=== PATIENT | male | born 1975 | race Two or more races ===

== ENCOUNTER → 2016-10-11 | Outpatient (CLI) | payer BC ==
[2014-04-06 08:30] VITALS: BP 112/76
[~2016-10-11] MED LIST: OMEP2.5S PO; PROP1VIA IV
[2016-10-11 08:36] LABS: ALBUMIN 3.8 g/dL (3.4-5.0); CALCIUM 8.6 mg/dL (8.5-10.1); CREATININE 0.8 mg/dL (0.7-1.3); POTASSIUM 3.6 mmol/L (3.5-5.1); TOTAL BILIRUBIN 0.7 mg/dL (0.2-1.0); TOTAL PROTEIN 7.7 g/dL (6.4-8.2)
[2016-10-11 08:37] LABS: GFR 106.5
== END | disposition home or self-care (01) ==
LOC: LAB 07:51
PROVIDERS: ATTEND Nurse Practitioner
DX: E78.1 Pure hyperglyceridemia (principal)
CPT/HCPCS: 36415; 80053; 80061

== ENCOUNTER → 2019-10-24 | Outpatient (CLI) | payer BC ==
[2014-04-06 08:30] VITALS: BP 112/76
[~2019-10-24] MED LIST changes: -OMEP2.5S PO; +OMEP2.5S2 PO
[2019-10-24 08:32] LABS: ALBUMIN 3.9 g/dL (3.4-5.0); CALCIUM 8.7 mg/dL (8.5-10.1); GFR 81.2; POTASSIUM 3.7 mmol/L (3.5-5.1); TOTAL BILIRUBIN 0.8 mg/dL (0.2-1.0); TOTAL PROTEIN 7.7 g/dL (6.4-8.2)
== END | disposition home or self-care (01) ==
LOC: LAB 07:41
PROVIDERS: ATTEND Internal Medicine Cardiovascular Disease
DX: E78.2 Mixed hyperlipidemia (principal)
CPT/HCPCS: 36415; 80053; 80061

== ENCOUNTER → 2021-01-19 | Outpatient (CLI) | payer BC ==
[2014-04-06 08:30] VITALS: BP 112/76
--- NOTE | 2021-01-19 09:26 | RAD ---
EXAM: Abdomen sonogram. HISTORY: Pain. TECHNIQUE: Sonographic imaging of the abdomen was performed. COMPARISON: None. FINDINGS: The liver is upper normal in size. There is hepatic steatosis. No focal hepatic lesion is s een. There is focal fatty sparing along the portal triad. The gallbladder is unremarkable. The common bile duct is normal in caliber. The spleen is enlarged, measuring 14.5 cm. The pancreas, aorta and i nferior vena cava are partially obscured due to bowel gas. The kidneys are unremarkable. IMPRESSION: 1. Hepatic steatosis and upper normal liver size. 2. Splenomegaly. 3. No acute sonographic finding. Electronically signed by: Iesha Bearden MD (01/19/2021 9:23 AM) [id number]
== END ==
LOC: US 08:34
PROVIDERS: ATTEND Physician Assistant
DX: K76.0 Fatty (change of) liver, not elsewhere classified (principal); R16.1 Splenomegaly, not elsewhere classified; R10.11 Right upper quadrant pain
CPT/HCPCS: 76700